=== PATIENT | female | born 1995 | race Caucasian/White ===

== ENCOUNTER 2018-03-01 18:24 | Emergency (ER) | payer SELFPAY ==
[2018-03-01] MEDS ORDERED: SODIUM CHLORIDE 1,000 ML IV STA (18:50)
--- NOTE | 2018-03-01 18:51 | PDOC ---
Rapid Medical Evaluation Time Seen by Provider: 03/01/18 18:41 Medical Evaluation: 03/01/18 18:46 Pt presents with one day of abdominal pain. She was working out at the gym and felt the pain after. Vomited once. Denies fevers, diarrhea, constipation. Exam: Ambulatory, VSS. RLQ tenderness on exam. Abdomen soft, non-distended Orders: Labs, urine, IV, Fluids Pt to proceed to ED for further eval. Discharge Disposition - Diagnosis Abdominal pain Qualifiers: Abdominal location: unspecified location Qualified Code(s): R10.9 - Unspecified abdominal pain - Referrals - Patient Instructions - Post Discharge Activity
[2018-03-01 19:09] VITALS: BMI 23.0
[2018-03-01 19:36] LABS: BASO % 0.5 % (0-2.0); EOS % 3.7 % (0-4.5); HEMATOCRIT 35.9 % (32.4-45.2); HEMOGLOBIN 12.3 GM/dL (10.7-15.3); LYMPH % 29.5 % (8-40); MCHC 34.3 g/dl (32.0-36.0); MEAN CELL VOLUME 87.5 fl (80-96); MONO % 6.9 % (3.8-10.2); NEUT % 59.4 % (42.8-82.8); PLATELET COUNT 338 K/MM3 (134-434); RDW 13.8 % (11.6-15.6); WHITE BLOOD COUNT 9.4 K/mm3 (4.0-10.0)
[2018-03-01 20:00] LABS: ANION GAP 6 (8-16); BILIRUBIN,TOTAL 0.3 mg/dL (0.2-1.0); BLOOD UREA NITROGEN 11 mg/dL (7-18); CALCIUM 8.5 mg/dL (8.5-10.1); CHLORIDE 109 mmol/L (98-107); CO2 27 mmol/L (21-32); CREATININE 0.8 mg/dL (0.55-1.02); GLUCOSE,RANDOM 90 mg/dL (74-106); POTASSIUM 4.2 mmol/L (3.5-5.1); SGOT/AST 13 U/L (15-37); SGPT/ALT 16 U/L (12-78); SODIUM 142 mmol/L (136-145); TOT PROT 7.2 g/dl (6.4-8.2)
--- NOTE | 2018-03-01 20:00 | PDOC ---
History of Present Illness - General History Source: Patient Exam Limitations: No Limitations - History of Present Illness Initial Comments: 03/01/18 20:11 The patient is a 22 year old female with no significant PMH who presents to the emergency department with lower right quadrant abdominal pain for 2 days. The patient reports that she has been experiencing associated nausea with her RLQ abdominal pain. The patient denies any fever, chills, vomit, diarrhea , constipation or urinary symptoms. The patient also denies any sick contact, allergies, or medication use. She denies any chest pain, shortness of breath, headache and dizziness. The patient denies any other complaints. Past surgical history: <Gilberto France - Last Filed: 03/01/18 20:11> - General History Source: Patient <Manav Núñez - Last Filed: 03/02/18 00:37> - General Chief Complaint: Pain, Acute Stated Complaint: STOMACH PAIN Time Seen by Provider: 03/01/18 18:41 Past History <Gilberto France - Last Filed: 03/01/18 20:11> - Past Medical History CVA: No COPD: No DVT: No - Immunization History Immunization Up to Date: Yes - Suicide/Smoking/Psychosocial Hx Smoking History: Never smoked Hx Alcohol Use: No Drug/Substance Use Hx: No Substance Use Type: None <Manav Núñez - Last Filed: 03/02/18 00:37> - Past Medical History Allergies/Adverse Reactions: Allergies Allergy/AdvReac Type Severity Reaction Status Date / Time No Known Allergies Allergy Verified 03/01/18 18:48 Home Medications: Ambulatory Orders Ciprofloxacin [Cipro] 500 mg PO BID #10 tablet 03/02/18 Ibuprofen [Motrin] 600 mg PO TID #30 tablet 03/02/18 Review of Systems - Review of Systems Able to Perform ROS?: Yes Comments:: 03/01/18 20:11 CONSTITUTIONAL: Absent: fever, chills, diaphoresis, generalized weakness, malaise, loss of appetite HEENT: Absent: rhinorrhea, nasal congestion, throat pain, throat swelling, difficulty swallowing, mouth swelling, ear pain, eye pain, visual Changes CARDIOVASCULAR: Absent: chest pain, syncope, palpitations, irregular heart rate, lightheadedness , peripheral edema RESPIRATORY: Absent: cough, shortness of breath, dyspnea with exertion, orthopnea, wheezing, stridor, hemoptysis GASTROINTESTINAL:(+)abdominal pain, nausea Absent: abdominal distension, vomiting, diarrhea, constipation, melena, hematochezia GENITOURINARY: Absent: dysuria, frequency, urgency, hesitancy, hematuria, flank pain, genital pain MUSCULOSKELETAL: Absent: myalgia, arthralgia, joint swelling SKIN: Absent: rash, itching, pallor HEMATOLOGIC/IMMUNOLOGIC: Absent: easy bleeding, easy bruising, lymphadenopathy, frequent infections ENDOCRINE: Absent: unexplained weight gain, unexplained weight loss, heat intolerance, cold intolerance NEUROLOGIC: Absent: headache, focal weakness or paresthesias, dizziness, unsteady gait, seizure, mental status changes, bladder or bowel incontinence PSYCHIATRIC: Absent: anxiety, depression, suicidal or homicidal ideation, hallucinations. <Gilberto France - Last Filed: 03/01/18 20:11> *Physical Exam - Vital Signs Last Vital Signs Temp Pulse Resp BP Pulse Ox 98.3 F 72 16 93/54 97 03/01/18 18:48 03/01/18 18:48 03/01/18 18:48 03/01/18 18:48 03/01/18 18:48 - Physical Exam Comments: 03/01/18 20:11 GENERAL: Well developed, well nourished. Awake and alert. No acute distress. HEENT: Normocephalic, atraumatic. PERRLA, EOMI. No conjunctival pallor. Sclera are non- icteric. Moist mucous membranes. Oropharynx is clear. NECK: Supple. Full ROM. No JVD. Carotid pulses 2+ and symmetric, without bruits. No thyromegaly. No lymphadenopathy. CARDIOVASCULAR: Regular rate and rhythm. No murmurs, rubs, or gallops. Distal pulses are 2+ and symmetric. PULMONARY: No evidence of respiratory distress. Lungs clear to auscultation bilaterally. No wheezing, rales or rhonchi. ABDOMINAL:(+) mild right lower quadrant tenderness. Soft.Non-distended. No rebound or guarding. No organomegaly. Normoactive bowel sounds. MUSCULOSKELETAL Normal range of motion at all joints. No bony deformities or tenderness. No CVA tenderness. EXTREMITIES: No cyanosis. No clubbing. No edema. No calf tenderness. SKIN: Warm and dry. Normal capillary refill. No rashes. No jaundice. NEUROLOGICAL: Alert, awake, appropriate. Cranial nerves 2-12 intact. No deficits to light touch and temperature in face, upper extremities and lower extremities. No motor deficits in the in face, upper extremities and lower extremities. Normoreflexic in the upper and lower extremities. Normal speech. Toes are down- going bilaterally. Gait is normal without ataxia. PSYCHIATRIC: Cooperative. Good eye contact. Appropriate mood and affect. <Gilberto France - Last Filed: 03/01/18 20:11> - Vital Signs Last Vital Signs Temp Pulse Resp BP Pulse Ox 98.3 F 72 16 93/54 97 03/01/18 18:48 03/01/18 18:48 03/01/18 18:48 03/01/18 18:48 03/01/18 18:48 <Manav Núñez - Last Filed: 03/02/18 00:37> ED Treatment Course - LABORATORY CBC & Chemistry Diagram: 03/01/18 19:28 03/01/18 19:28 - ADDITIONAL ORDERS Additional order review: Laboratory Results 03/01/18 03/01/18 19:49 19:28 Sodium 142 Potassium 4.2 Chloride 109 H Carbon Dioxide 27 Anion Gap 6 L BUN 11 Creatinine 0.8 Creat Clearance w eGFR > 60 Random Glucose 90 Calcium 8.5 Total Bilirubin 0.3 AST 13 L ALT 16 Alkaline Phosphatase 61 Total Protein 7.2 Albumin 4.0 Urine Color Yellow Urine Appearance Cloudy Urine pH 7.0 Ur Specific [place] 1.027 Urine Protein 1+ H Urine Glucose (UA) Negative Urine Ketones Negative Urine Blood Negative Urine Nitrite Negative Urine Bilirubin Negative Urine Urobilinogen 4.0 e.u/dl H Ur Leukocyte Esterase Trace Urine HCG, Qual Negative 03/01/18 19:28 RBC 4.10 MCV 87.5 MCHC 34.3 RDW 13.8 MPV 8.0 Neutrophils % 59.4 Lymphocytes % 29.5 Monocytes % 6.9 Eosinophils % 3.7 Basophils % 0.5 - Medications Given in the ED: ED Medications Discontinued Medications Generic Name Dose Route Start Last Admin Trade Name Freq PRN Reason Stop Dose Admin Sodium Chloride 1,000 mls @ 1,000 mls/hr 03/01/18 18:50 03/01/18 19:41 Normal Saline - IV 03/01/18 19:49 1,000 mls/hr ASDIR STA Administration <Gilberto France - Last Filed: 03/01/18 20:11> - LABORATORY CBC & Chemistry Diagram: 03/01/18 19:28 03/01/18 19:28 - ADDITIONAL ORDERS Additional order review: 03/01/18 19:28 RBC 4.10 MCV 87.5 MCHC 34.3 RDW 13.8 MPV 8.0 Neutrophils % 59.4 Lymphocytes % 29.5 Monocytes % 6.9 Eosinophils % 3.7 Basophils % 0.5 - RADIOLOGY Radiology Studies Ordered: Category Date Time Status ABDOMEN & PELVIS CT WITH CONTR [CT] Stat CT Scan 03/01/18 18:50 Ordered - Medications Given in the ED: ED Medications Discontinued Medications Generic Name Dose Route Start Last Admin Trade Name Freq PRN Reason Stop Dose Admin Sodium Chloride 1,000 mls @ 1,000 mls/hr 03/01/18 18:50 03/01/18 19:41 Normal Saline - IV 03/01/18 19:49 1,000 mls/hr ASDIR STA Administration <Manav Núñez - Last Filed: 03/02/18 00:37> Medical Decision Making - Medical Decision Making 03/02/18 00:36 Dr. Núñez: The scribe's documentation has been prepared under my direction and personally reviewed by me in its entirery. I confirm that the note above accurately reflects all work, treatment, procedures, and medical decision making performed by me. ct scan showed mild bladder inflammation. Appendix was normal. Rx Cipro 500mg po, Motrin 600mg po <Manav Núñez - Last Filed: 03/02/18 00:37> *DC/Admit/Observation/Transfer - Attestations Scribe Attestion: 03/01/18 20:12 Documentation prepared by Gilberto France, acting as medical physics teacher for Manav Núñez MD. <Gilberto France - Last Filed: 03/01/18 20:11> - Discharge Dispostion Decision to Admit order: No <Manav Núñez - Last Filed: 03/02/18 00:37> Diagnosis at time of Disposition: Cystitis Abdominal pain Qualifiers: Abdominal location: unspecified location Qualified Code(s): R10.9 - Unspecified abdominal pain - Discharge Dispostion Disposition: HOME Condition at time of disposition: Stable - Prescriptions Prescriptions: Ciprofloxacin [Cipro] 500 mg PO BID #10 tablet Ibuprofen [Motrin] 600 mg PO TID #30 tablet - Referrals Referrals: Jose Manuel Dempsey MD [Staff Physician] - - Patient Instructions Printed Discharge Instructions: DI for Acute Cystitis Print Language: TURKISH
[2018-03-01 20:01] LABS: ALK PHOS 61 U/L (45-117)
[2018-03-01 20:07] LABS: URINE APPEARANCE CLOUDY; URINE BILIRUBIN NEGATIVE (<2.0 mg/dL); URINE COLOR YELLOW; URINE GLUCOSE (UA) NEGATIVE (NEGATIVE); URINE KETONE NEGATIVE (NEGATIVE); URINE LEUK ESTERASE TRACE (NEGATIVE); URINE NITRITE NEGATIVE (NEGATIVE); URINE PROTEIN 1+ (NEGATIVE); URINE UROBILINOGEN 4.0 E.U/dl mg/dL (0.2-1.0)
[2018-03-01 20:10] LABS: HCG,QUALITATIVE URINE NEGATIVE
[2018-03-01 20:14] LABS: EPI CELLS RARE /HPF (FEW); URINE MUCUS RARE; YEAST FEW
[2018-03-01 20:23] LABS: INR 1.04 (0.82-1.09); PROTHROMBIN TIME (PATIENT) 11.8 SEC (9.7-13.0)
[2018-03-02] MEDS ORDERED: CIPROFLOXACIN 500 MG TABLET (RESTRICTED TO ID) PO STA (00:30)
[2018-03-02] MEDS ORDERED: IBUPROFEN 600 MG TABLET (FP) PO ONE ×2 (00:31→01:16)
[2018-03-02 01:33] VITALS: BP 100/78; PULSE 89; TEMP 98.5
== END 2018-03-02 01:33 | disposition home or self-care (01) ==
LOC: JER 18:24
PROC: 3E0337Z Introduction of Electrolytic and Water Balance Substance into Peripheral Vein, Percutaneous Approach (ICD-10-PCS; principal; 2018-03-01)
DX: R10.9 Unspecified abdominal pain (principal)
CPT/HCPCS: 36415; 74177-TC; 80053; 81003; 81015; 84703; 85025; 85610; 86850; 86900; 86901; 87086; 99282-25; J7030

== ENCOUNTER 2018-04-29 13:45 | Emergency (ER) | payer OTHER ==
--- NOTE | 2018-04-29 13:59 | PDOC ---
History of Present Illness - General Stated Complaint: 14 WEEKS PAIN IN STOMACHE Time Seen by Provider: 04/29/18 13:59 History Source: Patient - History of Present Illness Initial Comments: 04/29/18 14:56 22F with no PMH presents to the ER for abdominal pain. She states she is 14 weeks pregna but upon further evaluation she is 12 weeks 3 days. She called her OB at [facility] and they told her to go to the ER. She states since 4am she has been having RLQ abdominal pain. She states there is some minimal LLQ but it is mostly right. She also complains of lower back pain. Patient was seen here about 2 months ago and given ciprofloxacin for cystitis and at the time Upreg was negative but she did not take the antibiotics because she had morning sickness. She currently endorses dysuria as well. Still has not seen OB and will see OB on may 02, 2018 for US and appointment. She has been taking vitamins. She denies vaginal discharge or bleeding. She is in a monogamous relationship. Denies history of STDs/STIs. Past History - Travel Traveled outside of the country in the last 30 days: No Close contact w/someone who was outside of country & ill: No - Past Medical History Allergies/Adverse Reactions: Allergies Allergy/AdvReac Type Severity Reaction Status Date / Time No Known Allergies Allergy Verified 04/29/18 14:16 Home Medications: Ambulatory Orders Vit 93/Iron Fum/Folic [ Formula Tablet] 1 each PO DAILY CVA: No COPD: No DVT: No - Immunization History Immunization Up to Date: Yes - Suicide/Smoking/Psychosocial Hx Smoking History: Never smoked Hx Alcohol Use: No Drug/Substance Use Hx: No Substance Use Type: None Review of Systems - Review of Systems Able to Perform ROS?: Yes Is the patient limited Maori proficient: No Constitutional: No: Symptoms Reported, See HPI, Chills, Diaphoresis, Fever, Loss of Appetite, Malaise, Night Sweats, Weakness, Weight Stable, Unintentional Wgt. Loss, Unexplained wgt Loss, Other HEENTM: No: Symptoms Reported, See HPI, Eye Pain, Blurred Vision, Tearing, Recent change in vision, Double Vision, Cataracts, Ear Pain, Ocular Prothesis, Ear Discharge, Nose Pain, Nose Congestion, Tinnitus, Nose Bleeding, Hearing Loss , Throat Pain, Throat Swelling, Mouth Pain, Dental Problems, Difficulty Swallowing, Mouth Swelling, Other Respiratory: No: Symptoms reported, See HPI, Cough, Orthopnea, Shortness of Breath, SOB with Exertion, SOB at Rest, Stridor, Wheezing, Productive cough, Hemoptysis, Other Cardiac (ROS): No: Symptoms Reported, See HPI, Chest Pain, Edema, Irregular Heart Rate, Lightheadedness, Palpitations, Syncope, Chest Tightness, Other ABD/GI: Yes: Nausea, Vomiting (from mornign sickness), Other (abdominal pain) : Yes: Dysuria, Flank Pain Musculoskeletal: No: Symptoms Reported, See HPI, Back Pain, Gout, Joint Pain, Joint Swelling, Muscle Pain, Muscle Weakness, Neck Pain, Joint Stiffness, Other Integumentary: No: Symptoms Reported, See HPI, Bruising, Change in Color, Change in Hair/Nails, Dryness, Erythema, Flushing, Lesions, Lumps, Pallor, Pruritus, Rash, Sweating, Other Neurological: No: Symptoms reported, See HPI, Headache, Numbness, Paresthesia, Pre-Existing Deficit, Seizure, Tingling, Tremors, Weakness, Unsteady Gait, Ataxia, Dizziness, Other Psychiatric: No: Anxiety, Depression, Frequent Crying, Stressors, Sleep Pattern Change, Emotional Problems, Mood Swings, Change in Appetite, Other Endocrine: No: Symptoms Reported, See HPI, Excessive Sweating, Flushing, Intolerance to Cold, Intolerance to Heat, Increased Hunger, Increased Thirst, Increased Urine, Unexplained Weight Gain, Unexplained Weight Loss, Change in Weight, Other Hematologic/Lymphatic: No: Symptoms Reported, See HPI, Anemia, Blood Clots, Easy Bleeding, Easy Bruising, Bleeding Diathesis, Lymph Node Abnormalities, Swollen Glands, Other *Physical Exam - Physical Exam General Appearance: Yes: Nourished, Appropriately Dressed. No: Apparent Distress HEENT: positive: EOMI, SON, Normal ENT Inspection, Normal Voice, Symmetrical Neck: positive: Trachea midline, Supple Respiratory/Chest: positive: Lungs Clear, Normal Breath Sounds. negative: Respiratory Distress Cardiovascular: positive: Regular Rhythm, Regular Rate, S1, S2. negative: Edema , JVD, Murmur Gastrointestinal/Abdominal: positive: Tender (suprabic tenderness RLQ tenderness ), Soft Musculoskeletal: positive: CVA Tenderness, CVA Tenderness (R) Extremity: positive: Normal Capillary Refill, Normal Inspection, Normal Range of Motion. negative: Tender Integumentary: positive: Dry, Warm Neurologic: positive: email marketing processor II-XII NML intact, Fully Oriented, Alert, Normal Mood/ Affect, Normal Response, Motor Strength 01/08 ED Treatment Course - LABORATORY CBC & Chemistry Diagram: 04/29/18 15:00 04/29/18 15:00 Medical Decision Making - Medical Decision Making 04/29/18 15:08 22F with no PMH presents to the ER with dysuria, flank pain, and abdominal pain likely with pyelonephritis from untreated cystitis. DDx includes but not limited to UTI and threatened Will do: CBC CMP Mg Type and screen Beta HCG UA UCx US Reassess 04/29/18 17:40 ultrasounds noted: Renal US WNL transvaginal US confirms intrauterine Dr. Bueno spoken to over the phone and recommends against ABx given negative UA and US showing 8 weeks and fetus currently undergoing organogensis at this stage. Pain could be due to round ligament pain or rio hick contractions. Patient should follow up with OB and keep herself hydrated Per OB. If UCx grows something patient should be treated. *DC/Admit/Observation/Transfer Diagnosis at time of Disposition: Abdominal pain Qualifiers: Abdominal location: right lower quadrant Qualified Code(s): R10.31 - Right lower quadrant pain - Discharge Dispostion Disposition: HOME Condition at time of disposition: Stable Decision to Admit order: No - Referrals Referrals: Zeina Frank CNM [Primary Care Provider] - 3 days (call for appointment) - Patient Instructions Printed Discharge Instructions: True or False: Women Should Avoid Cats , Support Garment May Reduce Back Pain Discomfort During , DI for Abdominal Pain -- Early Additional Instructions: you were seen for abdominal pain. Please follow up with your OB doctor as soon as possible. If you have worsening symptoms please go to the nearest emergency room. If you start having cramping or vaginal bleeding go to the nearest emergency room. You OB doctor should follow up your urine culture. You should be following with a primary care doctor. If you need a doctor you can follow up with me at [address] [place] [address] floor. i see patients every from 1-430pm. You can make an appointment with Dr. Lyle Bond Call . - Post Discharge Activity
[2018-04-29 14:24] VITALS: TEMP 98.7; BMI 20.2
[2018-04-29] MEDS ORDERED: SODIUM CHLORIDE 1,000 ML IV STA (14:36)
--- NOTE | 2018-04-29 14:54 | PDOC ---
Attending Attestation - Resident Resident Name: Mony Bondsukhdeep - ED Attending Attestation I have performed the following: I have examined & evaluated the patient, The case was reviewed & discussed with the resident, I agree w/resident's findings & plan, Exceptions are as noted - Medical Decision Making 04/29/18 14:49 A portion of this note was written by my scribe, under my supervision. Vital Signs Temp Pulse Resp BP Pulse Ox 98.7 F 75 18 111/61 98 04/29/18 14:22 04/29/18 14:22 04/29/18 14:22 04/29/18 14:22 04/29/18 14:22 22 year old female with no pmh, ~12 to 13 wks p/w dysuria, suprapubic pain and R flank pain. Endorses discomfort since 4 am. States she has dysuria but no fevers, vomiting. States has been feeling nauseous, but attributes to morning sickness. Pt was diagnosed with cystitis several weeks ago, but never took the antibiotics. With R flank pain, dysuria, findings are concerning for pyelonephritis. Labs, UA. Likely ceftriaxone and if cleared by donkey ride operator (from consultation), pt can be d/c with keflex. Denies vaginal bleeding. Check ultrasound. 04/29/18 16:01 CBC, BMP 04/29/18 15:00 04/29/18 15:00 CMP Sodium 138 mmol/L (136-145) 04/29/18 15:00 Potassium 4.1 mmol/L (3.5-5.1) 04/29/18 15:00 Chloride 107 mmol/L (98-107) 04/29/18 15:00 Carbon Dioxide 24 mmol/L (21-32) 04/29/18 15:00 Anion Gap 7 MMOL/L (8-16) L 04/29/18 15:00 BUN 9 mg/dL (7-18) 04/29/18 15:00 Creatinine 0.4 mg/dL (0.55-1.02) L 04/29/18 15:00 Creat Clearance w eGFR > 60 (>60) 04/29/18 15:00 Random Glucose 74 mg/dL (74-106) 04/29/18 15:00 Calcium 8.3 mg/dL (8.5-10.1) L 04/29/18 15:00 Magnesium 2.0 mg/dL (1.8-2.4) 04/29/18 15:00 Total Bilirubin 0.3 mg/dL (0.2-1.0) 04/29/18 15:00 AST 9 U/L (15-37) L 04/29/18 15:00 ALT 13 U/L (12-78) 04/29/18 15:00 Alkaline Phosphatase 37 U/L (45-117) L 04/29/18 15:00 Total Protein 7.0 g/dl (6.4-8.2) 04/29/18 15:00 Albumin 3.8 g/dl (3.4-5.0) 04/29/18 15:00 Beta HCG, Quant 81269.2 mIU/ml 04/29/18 15:00 Urine Test Results Urine Color Yellow 04/29/18 15:00 Urine Appearance Slcloudy 04/29/18 15:00 Urine pH 6.0 (5.0-8.0) 04/29/18 15:00 Ur Specific [place] 1.028 (1.001-1.035) 04/29/18 15:00 Urine Protein Negative (NEGATIVE) 04/29/18 15:00 Urine Glucose (UA) Negative (NEGATIVE) 04/29/18 15:00 Urine Ketones Negative (NEGATIVE) 04/29/18 15:00 Urine Blood Negative (NEGATIVE) 04/29/18 15:00 Urine Nitrite Negative (NEGATIVE) 04/29/18 15:00 Urine Bilirubin Negative (<2.0 mg/dL) 04/29/18 15:00 Ur Leukocyte Esterase Negative (NEGATIVE) 04/29/18 15:00 Though UA is negative, given that pt has dysuria and flank pain, will treat as pyelonephritis. Give IV antibiotics. <Niels Eason - Last Filed: 04/29/18 16:01> - HPI HPI: Patient is a 22 year old female no ,0,0, who is 12 weeks 3 days, ( prior c-sections), who presents with abdominal pain. Patient states that her right-sided abdominal pain began around 4 am. She states that she called her manual tester at [address] [place] [address] who advised her to come to the ER. She also reports some nausea and vomiting and states that she normally gets morning sickness. She also endorses a burning pain upon urination. She was seen 2 months ago and dx with cystitis. She denies h/o of STDs. Denies any fever or chills. Denies recent vaginal bleeding. - Physicial Exam PE: GENERAL: Awake, alert, and fully oriented, in no acute distress HEAD: No signs of trauma EYES: PERRLA, EOMI, sclera anicteric, conjunctiva clear ABDOMEN: Soft, Right sided CVA tenderness, suprapubic tenderness. No guarding, no rebound. EXTREMITIES: Normal range of motion, no edema. No clubbing or cyanosis. No cords, erythema, or tenderness NEUROLOGICAL: Cranial nerves II through XII grossly intact. Normal speech, normal gait SKIN: Warm, Dry, normal turgor, no rashes or lesions noted. <Francesca Garcia - Last Filed: 04/29/18 16:26>
[2018-04-29 15:27] LABS: BASO % 0.3 % (0-2.0); EOS % 2.4 % (0-4.5); HEMATOCRIT 35.4 % (32.4-45.2); HEMOGLOBIN 12.4 GM/dL (10.7-15.3); LYMPH % 21.1 % (8-40); MCH 30.6 pg (25.7-33.7); MCHC 35.1 g/dl (32.0-36.0); MEAN PLT VOLUME 8.6 fl (7.5-11.1); MONO % 4.8 % (3.8-10.2); NEUT % 71.4 % (42.8-82.8); PLATELET COUNT 275 K/MM3 (134-434); RBC 4.07 M/mm3 (3.60-5.2); RDW 13.4 % (11.6-15.6); WHITE BLOOD COUNT 9.3 K/mm3 (4.0-10.0)
[2018-04-29 15:32] LABS: ALBUMIN 3.8 g/dl (3.4-5.0); ANION GAP 7 MMOL/L (8-16); BLOOD UREA NITROGEN 9 mg/dL (7-18); CALCIUM 8.3 mg/dL (8.5-10.1); CHLORIDE 107 mmol/L (98-107); CO2 24 mmol/L (21-32); GLUCOSE,RANDOM 74 mg/dL (74-106); POTASSIUM 4.1 mmol/L (3.5-5.1); SGOT/AST 9 U/L (15-37); SGPT/ALT 13 U/L (12-78); SODIUM 138 mmol/L (136-145); URINE APPEARANCE SLCLOUDY; URINE BILIRUBIN NEGATIVE (<2.0 mg/dL); URINE COLOR YELLOW; URINE GLUCOSE (UA) NEGATIVE (NEGATIVE); URINE KETONE NEGATIVE (NEGATIVE); URINE LEUK ESTERASE NEGATIVE (NEGATIVE); URINE NITRITE NEGATIVE (NEGATIVE); URINE PROTEIN NEGATIVE (NEGATIVE)
[2018-04-29 15:50] LABS: ALK PHOS 37 U/L (45-117); BILIRUBIN,TOTAL 0.3 mg/dL (0.2-1.0); CREATININE 0.4 mg/dL (0.55-1.02)
[2018-04-29 18:46] VITALS: BP 101/68; PULSE 61
== END 2018-04-29 18:46 | disposition home or self-care (01) ==
LOC: JER 13:45
PROC: 3E0337Z Introduction of Electrolytic and Water Balance Substance into Peripheral Vein, Percutaneous Approach (ICD-10-PCS; principal; 2018-04-29)
DX: O26.891 Other specified pregnancy related conditions, first trimester (principal); R10.31 Right lower quadrant pain; Z3A.08 8 weeks gestation of pregnancy
CPT/HCPCS: 36415; 76775-TC; 76815-TC; 76817-TC; 80053; 81003; 83735; 84702; 85025; 86850; 86900; 86901; 87086; 96360; 99282-25; J7030

== ENCOUNTER 2018-11-23 12:30 | Inpatient (IN) | payer OTHER ==
[2018-11-23 13:53] VITALS: BMI 24.5
--- NOTE | 2018-11-23 13:56 | HP ---
Past Medical History - Admission Chief Complaint: RLTCS History of Present Illness: 23yo @ 39wks here for scheduled RTLCS, declined BTL Preg c/b 3 prior C/S (initially for arrest of 2nd stage) and UTI, but treated with Macrobid course. Today reports No VB/LOF, no ctx. +FM Consistent PNC at [address] [place] [address] History Source: Patient Limitations to Obtaining History: No Limitations - Past Medical History ENVIRONMENTAL ATTORNEY: No: Alzheimer's, CVA, Dementia, Migraine, Multiple Sclerosis, Peripheral Neuropathy, Parkinson's, Seizure, Syncope, TIA, Vertigo, Other Cardiovascular: No: AFIB, Aneurysm, Aortic Insufficiency, Aortic Stenosis, CAD, CHF, Deep Vein Thrombosis, HTN, Hyperlipdemia, LA, Mitral Insufficiency, Mitral Stenosis, Murmur, Pulmonary Hypertension, Other Pulmonary: No: Asthma, Bronchitis, Cancer, COPD, O2 Dependent, Pneumonia, Previously Intubated, Pulmonary Embolus, Pulmonary Fibrosis, Sleep Apnea, Other ...Para: 4 ...Term: 3 Heme/Onc: No: Anemia, B12 Deficiency, Bleeding Disorder, Cancer, Current Chemotherapy, Current Radiation Therapy, Hemochromatosis, Hypercoaguable State, Myeloproliferative Synd, Sickle Cell Disease, Sickle Cell Trait, Thrombocytopenia, Other - Past Surgical History Past Surgical History: Yes: Hx Myomectomy: No Hx Transabdominal Cerclage: No - Smoking History Smoking history: Never smoked Have you smoked in the past 12 months: No - Alcohol/Substance Use Hx Alcohol Use: No History of Substance Use: reports: None - Social History Usual Living Arrangement: Yes: With Spouse ADL: Independent History of Recent Travel: No Home Medications - Allergies Allergies/Adverse Reactions: Allergies Allergy/AdvReac Type Severity Reaction Status Date / Time No Known Allergies Allergy Verified 04/29/18 14:16 - Home Medications Home Medications: Ambulatory Orders Vit 93/Iron Fum/Folic [ Formula Tablet] 1 each PO DAILY Review of Systems - Review of Systems Constitutional: denies: No Symptoms, Chills, Diaphoresis, Fever, Lethargy, Loss of Appetite, Malaise, Night Sweats, Unintentional Wgt. Loss, Weakness, Other Cardiovascular: denies: No Symptoms, Chest Pain, Edema, Palpitations, Shortness of Breath, Other Respiratory: denies: No Symptoms, Cough, Exercise Intolerance, Hemoptysis, Orthopnea, PND, Snoring, SOB, SOB on Exertion, Wheezing, Other Gastrointestinal: denies: No Symptoms, Abdominal Pain, Bloating, Constipation, Diarrhea, Dysphagia, Indigestion, Melena, Nausea, Rectal Bleeding, Vomiting, Vomiting Blood, Other Physical Exam - Maternity Constitutional: Yes: Well Nourished Eyes: Yes: WNL HENT: Yes: WNL - Abdominal Exam/OB Number of Fetuses: Single Presentation: Vertex Contractions: No Monitor Mode: External Heart Rate Location: [facility], [facility] Category: I Accelerations: Non-Uniform Decelerations: None - Vaginal Exam/OB Vaginal Bleediing: No Speculum Exam: No Dilatation (cm): deferr Amniotic Membrane Status: Intact Presentation: Vertex/Position - Physical Exam Edema: No Problem List - Problems (1) History of Code(s): Z98.891 - HISTORY OF UTERINE SCAR FROM PREVIOUS SURGERY Assessment/Plan 23yo @ 39wks here for scheduled RTLCS, no BTL Admit to L&D NPO, IVFs Ancef IV SCDs Risk of procedure including bleeding requiring transfusion, infection and injury to surrounding tissue (bladder, bowel, tubes, ovaries, vessels, infant) all discussed. Previously counseled that future C-Sections will need to be in a tertiary care center. Consent signed. Micki Dyer MD
[2018-11-23] MEDS ORDERED: ELECTROLYTE-148 SOLN 1,000 ML IV SCH (14:00)
[2018-11-23] MEDS ORDERED: ELECTROLYTE-148 SOLN 500 ML IV ONE (14:03)
[2018-11-23] MEDS ORDERED: CITRIC ACID/SODIUM CITRATE 30 ML UNIT-DOSE CUP PO ONE (14:03)
[2018-11-23] MEDS ORDERED: morphine SULFATE/Preservative Free 0.5 MG/ML (1cc Syringe) ONE (15:49)
[2018-11-23] MEDS ORDERED: OXYTOCIN 20 UNITS in 0.9% NS 40 UNIT/2,000 ML INFUS.BAG IV ONE (15:52)
[2018-11-23] MEDS ORDERED: ceFAZolin SODIUM 1 GM VIAL ONE (16:09)
[2018-11-23] MEDS ORDERED: ePHEDrine SULFATE 50 MG/1 ML AMPULE ONE (16:20)
[2018-11-23 16:51] LABS: ALBUMIN 2.5 g/dl (3.4-5.0); ALK PHOS 137 U/L (45-117); ANION GAP 8 MMOL/L (8-16); BILIRUBIN,TOTAL 0.4 mg/dL (0.2-1); BLOOD UREA NITROGEN 7 mg/dL (7-18); CALCIUM 7.5 mg/dL (8.5-10.1); CHLORIDE 107 mmol/L (98-107); CO2 23 mmol/L (21-32); CREATININE 0.3 mg/dL (0.55-1.3); GLUCOSE,RANDOM 62 mg/dL (74-106); POTASSIUM 3.8 mmol/L (3.5-5.1); SGOT/AST 13 U/L (15-37); SGPT/ALT 10 U/L (13-61); SODIUM 137 mmol/L (136-145); TOT PROT 5.6 g/dl (6.4-8.2)
[2018-11-23] MEDS ORDERED: IBUPROFEN 800 MG/8 ML IJ IVPB PRN (16:53)
[2018-11-23] MEDS ORDERED: METHYLERGONOVINE MALEATE 0.2 MG/1 ML AMP IM PRN (16:53)
[2018-11-23] MEDS ORDERED: SENNOSIDES/DOCUSATE COMBO (SENNA PLUS) TABLET (UD) PO PRN (16:53)
--- NOTE | 2018-11-23 16:53 | OP ---
Operative Note - Note: Operative Date: 11/23/18 Pre-Operative Diagnosis: 39wks, prior C/S x 3 Operation: Repeat Low Transverse Findings: VMI, weight pending. Apgars 7,9. Normal tubes and ovaries. No nuchal. No meconium. Post-Operative Diagnosis: Same as Pre-op Surgeon: Chani Dyer Substation Supervisor: Killian Griggs Anesthesiologist/MILITARY SOURCE OPERATIONS OFFICER: Alfred Carver Anesthesia: Spinal Estimated Blood Loss (mls): 500 Drains, Volume Out (mls): 300 (clear urine) Operative Report Dictated: Yes
[2018-11-23] MEDS ORDERED: OXYTOCIN 20 UNITS in 0.9% NS 20 UNIT/1,000 ML INFUS.BAG IV SCH (17:00)
[2018-11-23] MEDS ORDERED: ONDANSETRON 4 MG/2 ML VIAL IVPUSH PRN (17:13)
[2018-11-23] MEDS: FERROUS SO4 325 MG TABLET (FP) PO SCH (23:10)
[2018-11-24] MEDS ORDERED: OXYTOCIN 20 UNITS in 0.9% NS 20 UNIT/1,000 ML INFUS.BAG IV ONE (04:44)
[2018-11-24 08:15] LABS: BASO % 0.2 % (0-2.0); EOS % 0.1 % (0-4.5); HEMATOCRIT 30.1 % (32.4-45.2); HEMOGLOBIN 10.1 GM/dL (10.7-15.3); LYMPH % 7.4 % (8-40); MCH 27.4 pg (25.7-33.7); MCHC 33.6 g/dl (32.0-36.0); MEAN CELL VOLUME 81.4 fl (80-96); MEAN PLT VOLUME 8.7 fl (7.5-11.1); MONO % 4.3 % (3.8-10.2); PLATELET COUNT 227 K/MM3 (134-434); RDW 19.7 % (11.6-15.6)
--- NOTE | 2018-11-24 09:00 | PN ---
Post Progress Note Post Day: 1 Type of Delivery: Repeat C/S Vital Signs: Vital Signs Temperature 98.5 F 11/24/18 06:03 Pulse Rate 84 11/24/18 06:03 Respiratory Rate 20 11/24/18 07:00 Blood Pressure 103/51 L 11/24/18 06:03 O2 Sat by Pulse Oximetry (%) 100 11/23/18 19:45 Uterus: Yes: Fundus below umbilicus Incision: Yes: Dressing dry and intact, Romel intact Abdomen/GI: Yes: Abdomen soft Lochia: Yes: Rubra Lochia, amount: Small Extremities: Yes: Calves non-tender Activity: Ambulating - Labs Labs: CBC WBC 15.0 K/mm3 (4.0-10.0) H 11/24/18 07:30 RBC 3.70 M/mm3 (3.60-5.2) 11/24/18 07:30 Hgb 10.1 GM/dL (10.7-15.3) L 11/24/18 07:30 Hct 30.1 % (32.4-45.2) L D 11/24/18 07:30 MCV 81.4 fl (80-96) 11/24/18 07:30 MCH 27.4 pg (25.7-33.7) 11/24/18 07:30 MCHC 33.6 g/dl (32.0-36.0) 11/24/18 07:30 RDW 19.7 % (11.6-15.6) H 11/24/18 07:30 Plt Count 227 K/MM3 (134-434) D 11/24/18 07:30 MPV 8.7 fl (7.5-11.1) 11/24/18 07:30 Absolute Neuts (auto) 13.2 K/mm3 (1.5-8.0) H 11/24/18 07:30 Neutrophils % 88.0 % (42.8-82.8) H 11/24/18 07:30 Lymphocytes % 7.4 % (8-40) L D 11/24/18 07:30 Monocytes % 4.3 % (3.8-10.2) 11/24/18 07:30 Eosinophils % 0.1 % (0-4.5) D 11/24/18 07:30 Basophils % 0.2 % (0-2.0) 11/24/18 07:30 Nucleated RBC % 0 % (0-0) 11/24/18 07:30 Problem List - Problems (1) History of Code(s): Z98.891 - HISTORY OF UTERINE SCAR FROM PREVIOUS SURGERY Assessment/Plan 23yo s/p RTLCS, no BTL, POD#1 Routine PP care OOB, ambulate D/C sal today Labs pending Anticipate d/c to home by POD#4 Micki Dyer MD
[2018-11-24] MEDS: PRENATAL VITAMINS W/ FOLIC ACID TABLET (FP) PO SCH (09:05)
[2018-11-24] MEDS: FERROUS SO4 325 MG TABLET (FP) PO SCH ×2 (09:05→22:09)
--- NOTE | 2018-11-24 11:27 | PN ---
Progress Note (short form) - Note Progress Note: Post op day#1.S/P C Section under spinal anesthesia with duramorph uneventful.Patient stable and has little pain for which she is on medication.no any anesthesia related problem.Patient Dc from the anesthesia care.
[2018-11-24] MEDS: oxyCODONE HCL 5 MG TABLET PO PRN ×3 (12:45→22:15)
[2018-11-24] MEDS: IBUPROFEN 600 MG TABLET (FP) PO PRN ×3 (12:46→22:14)
--- NOTE | 2018-11-24 12:53 | OP ---
DATE OF OPERATION: 11/23/2018 PREOPERATIVE DIAGNOSES: A 39-week , 3 prior sections. POSTOPERATIVE DIAGNOSES: A 39-week , 3 prior sections. PROCEDURE: Repeat low transverse section. SURGEON: Chani Dyer MD CONFECTIONERY LABORATORY MANAGER: DICK Epps ANESTHESIA: Spinal. INTRAVENOUS FLUIDS: 1300. ESTIMATED BLOOD LOSS: 500. URINE OUTPUT: 300 mL of clear urine at the end of the procedure. FINDINGS: Viable male . ROT presentation. No nuchal. No meconium. Apgars 7/9. Weight pending. Normal tubes and ovaries bilaterally. COMPLICATIONS: None. CONDITION: Stable to recovery room. NATURE OF PROCEDURE: After appropriate consents were signed, patient was taken to the operating room where spinal anesthesia was administered. She was placed in supine position. A Boels catheter had been inserted prior to entry into the operating room. The abdomen was then prepped and draped in a normal sterile fashion. A Pfannenstiel incision was made after the timeout was performed. The incision was made with a scalpel and carried through to the underlying layers until the fascia was nicked in the midline. Fascia was then extended with the use of the scalpel laterally secondary to dense adhesions and then also with the Gaytan scissors. The inferior aspect of the fascia was grasped, tended upwards, and the rectus muscles were dissected off sharply with the Gaytan scissors and scalpel. Attention was then paid to the superior aspect which was taken down in a similar fashion. The rectus muscles were fused in the midline with dense adhesions. They were grasped, and at the rectus sheath midline, the scalpel was used to cautiously enter the peritoneal cavity. This was then extended manually. The bladder blade was inserted. Vesicouterine flaps were created with the Metzenbaum scissors. The bladder flap was created digitally. The bladder blade was readjusted. The uterus was incised in a low transverse fashion and was noted to be quite thin. However, there was no uterine window. Clear amniotic fluid was noted upon entry. The was delivered without difficulty and cord was clamped and cut. The was handed off to the awaiting pediatric staff. The uterus was then manually removed. The uterus was exteriorized and cleared of all clot and debris. The hysterotomy was closed in a single vertical imbricating layer with good hemostasis. At the edges, there was an area on the patient's left at the hysterotomy that had to be reinforced with 1 Vicryl. Hemostasis was then noted. The uterus was then returned to the abdominal cavity. The hysterotomy was rechecked and noted to still be hemostatic. The gutters were cleared of all clot and debris. The rectus muscles were then reapproximated in the midline with a 2 -0 chromic. The fascia was closed with a 0 Vicryl. Skin was closed with leatha. Sponge, lap, and needle counts were correct x3. Patient did receive 1 g of Ancef at the start of the procedure. She was taken from the operating room to the recovery room in stable condition. MD MARQUITA STAFFORD/[id number] MTDD
[2018-11-24] MEDS ORDERED: BISACODYL 10 MG SUPP.RECT RC PRN (16:53)
[2018-11-24] MEDS: SIMETHICONE 80 MG TAB.CHEW (FP) PO PRN (22:09)
--- NOTE | 2018-11-25 06:14 | PN ---
Progress Note (short form) - Note Progress Note: pod 2 s/p c/s doing well, no c/o Last Vital Signs Temp Pulse Resp BP Pulse Ox 97.2 F L 73 20 90/70 100 11/24/18 21:55 11/24/18 21:55 11/24/18 21:55 11/24/18 21:55 11/23/18 19:45 abdomen soft , no distension, no cva incision dry, clean no calf tenderness pod 2 afebrile plan ambulate , cbc in am pain management
[2018-11-25] MEDS: oxyCODONE HCL 5 MG TABLET PO PRN ×3 (09:43→20:41)
[2018-11-25] MEDS: IBUPROFEN 600 MG TABLET (FP) PO PRN ×3 (09:43→20:40)
[2018-11-25] MEDS: PRENATAL VITAMINS W/ FOLIC ACID TABLET (FP) PO SCH (09:45)
[2018-11-25] MEDS: FERROUS SO4 325 MG TABLET (FP) PO SCH ×2 (09:45→21:50)
[2018-11-25] MEDS: SIMETHICONE 80 MG TAB.CHEW (FP) PO PRN ×2 (16:19→20:40)
[2018-11-26] MEDS: IBUPROFEN 600 MG TABLET (FP) PO PRN ×3 (04:08→14:17)
[2018-11-26] MEDS: SIMETHICONE 80 MG TAB.CHEW (FP) PO PRN ×2 (04:09→14:18)
[2018-11-26] MEDS: oxyCODONE HCL 5 MG TABLET PO PRN ×2 (04:09→09:26)
[2018-11-26 07:37] LABS: BASO % 0.4 % (0-2.0); EOS % 3.2 % (0-4.5); HEMATOCRIT 27.6 % (32.4-45.2); HEMOGLOBIN 9.4 GM/dL (10.7-15.3); MCH 27.6 pg (25.7-33.7); MEAN CELL VOLUME 81.3 fl (80-96); MEAN PLT VOLUME 8.5 fl (7.5-11.1); MONO % 4.9 % (3.8-10.2); NEUT % 64.5 % (42.8-82.8); PLATELET COUNT 268 K/MM3 (134-434); RDW 20.4 % (11.6-15.6); WHITE BLOOD COUNT 10.1 K/mm3 (4.0-10.0)
[2018-11-26] MEDS: FERROUS SO4 325 MG TABLET (FP) PO SCH (09:25)
[2018-11-26] MEDS: PRENATAL VITAMINS W/ FOLIC ACID TABLET (FP) PO SCH (09:25)
[2018-11-26 13:39] VITALS: BP 108/62; PULSE 72; TEMP 98.2
--- NOTE | 2018-11-26 14:50 | PN ---
Progress Note (short form) - Note Progress Note: pod 3 doing well, no c/o passing gas CBC, BMP 11/26/18 06:00 11/23/18 15:45 abdomen soft, no distension, no cva incision dry , clean, healing no calf tenderness lochia mild plan ambulate ,for d/c home in am
--- NOTE | 2018-12-01 13:03 | PATH ---
Surgical Pathology Report Patient Name: AUSTIN TAYLOR [facility]. Rec. #: [id number] /Age/Gender: 1995 (Age: 23) / F Account: [id number] Location: [facility] OBS/CANNONEER Taken: 11/23/2018 Received: 11/24/2018 Reported: 12/01/2018 Physicians: Chani Dyer Specimen(s) Received PLACENTA Clinical History , x3, history of blood transfusion with hemorrhage (2016) 39 weeks gestation Final Diagnosis PLACENTA, DELIVERY: FOCALLY DISRUPTED THIRD TRIMESTER PLACENTA WITH INTERVILLOUS AND SUBCHORIONIC FIBRIN DEPOSITION, THREE VESSEL UMBILICAL CORD AND UNREMARKABLE PLACENTAL MEMBRANES. Electronically Signed Harpal Lewis M.D. Gross Description The specimen is received fresh labeled placenta and is a 437 gram, 15.0 x 14.0 x 3.3 cm. placenta with attached membranes and umbilical cord. The attached membranes are alarcon, translucent with focal opacities and insert marginally. The umbilical cord measures 30 cm. in length and averages 1.3 cm. in diameter. The cord inserts eccentrically, 5 cm. to the nearest margin. No true knots or strictures are identified. Cut surface of the umbilical cord reveals 3 vessels. The surface is calderon-blue with minimal fibrin deposition and appropriate caliber vessels. The maternal surface is red-brown with focal defects. Sectioning reveals red-brown, spongy parenchyma. No lesions are identified. Planning Aide sections are submitted in three cassettes as follows: 1- membrane rolls and umbilical cord; 2-3- full thickness sections of placenta. /11/30/2018 [facility]11/30/2018
== END 2018-11-26 16:10 | disposition home or self-care (01) | DRG 540 ==
LOC: JLDR 12:30 → J3W 20:00
PROVIDERS: ADMIT Obstetrics & Gynecology; ATTEND Obstetrics & Gynecology
PROC: 10D00Z1 Extraction of Products of Conception, Low, Open Approach (ICD-10-PCS; principal; 2018-11-23)
DX: O34.219 Maternal care for unspecified type scar from previous cesarean delivery (principal); Z3A.39 39 weeks gestation of pregnancy; Z37.0 Single live birth
CPT/HCPCS: 36415; 80053; 85025; 85610; 86593; 86850; 86900; 86901; 88307-TC

== ENCOUNTER 2021-09-04 22:43 | Emergency (ER) | payer OTHER ==
[2021-09-04 23:04] VITALS: BMI 26.4
[2021-09-05] MEDS ORDERED: ACETAMINOPHEN 1000 MG/100 ML VIAL IVPB ONE (00:01)
[2021-09-05] MEDS ORDERED: ACETAMINOPHEN INJECTION 100 ML IVPB ONE (00:38)
[2021-09-05 00:43] LABS: BASO % 0.3 % (0-2.0); EOS % 0.3 % (0-4.5); HEMATOCRIT 42.7 % (32.4-45.2); HEMOGLOBIN 14.3 GM/dL (10.7-15.3); LYMPH % 3.7 % (8-40); MCH 29.2 pg (25.7-33.7); MCHC 33.5 g/dl (32.0-36.0); MEAN CELL VOLUME 87.2 fl (80-96); MONO % 6.3 % (3.8-10.2); NEUT % 89.4 % (42.8-82.8); PLATELET COUNT 322 10^3/uL (134-434); RBC 4.89 M/mm3 (3.60-5.2); RDW 13.7 % (11.6-15.6); WHITE BLOOD COUNT 15.8 K/mm3 (4.0-10.0)
[2021-09-05 00:48] LABS: HCG,QUALITATIVE URINE Negative
[2021-09-05 00:49] LABS: EPI CELLS 33 /uL (0-25.1); HYALINE CASTS 1 /uL (0-3.1); PH,URINE 8.5 (5.0-8.0); URINE APPEARANCE TURBID; URINE BACTERIA 1259 /uL (0-1359); URINE BILIRUBIN NEGATIVE (NEGATIVE); URINE COLOR YELLOW; URINE GLUCOSE (UA) NEGATIVE (NEGATIVE); URINE KETONE NEGATIVE (NEGATIVE); URINE LEUK ESTERASE 1+ (NEGATIVE); URINE NITRITE NEGATIVE (NEGATIVE); URINE PROTEIN NEGATIVE (NEGATIVE); URINE WBC 58 /uL (0-25.8)
[2021-09-05 01:02] LABS: CHLORIDE 105 mmol/L (98-107); SODIUM 139 mmol/L (136-145)
[2021-09-05 01:04] LABS: BLOOD UREA NITROGEN 9.6 mg/dL (7-18); CALCIUM 9.5 mg/dL (8.5-10.1)
[2021-09-05 01:05] LABS: ALBUMIN 4.8 g/dl (3.4-5.0); ANION GAP 8 MMOL/L (8-16); CO2 26 mmol/L (21-32); GLUCOSE,RANDOM 99 mg/dL (74-106)
[2021-09-05 01:07] LABS: CREATININE 0.8 mg/dL (0.55-1.3); SGOT/AST 19 U/L (15-37); SGPT/ALT 35 U/L (13-61)
[2021-09-05 01:09] LABS: BILIRUBIN,TOTAL 0.4 mg/dL (0.2-1); TOT PROT 8.5 g/dl (6.4-8.2)
[2021-09-05 01:11] LABS: ALK PHOS 62 U/L (45-117)
[2021-09-05 01:17] LABS: VENOUS BASE EXCESS -3.4 mmol/L (-2-2); VENOUS O2 SATURATION 90.9 % (70-80); VENOUS PCO2 35.4 mmHg (38-52); VENOUS PH 7.387 (7.310-7.410)
[2021-09-05 02:51] VITALS: BP 104/59; PULSE 85; TEMP 98.3
== END 2021-09-05 04:15 | disposition home or self-care (01) ==
LOC: JER 22:43
DX: N39.0 Urinary tract infection, site not specified (principal); U07.1 COVID-19
CPT/HCPCS: 36415; 71045-TC-FY; 74177-TC; 80053; 81003; 82550; 82803; 83605; 84484; 84703; 85025; 87040; 87086; 87804; 93005; 93010; 99285-25; C9803; J0131; U0003; U0005

== ENCOUNTER 2023-03-29 20:55 | Emergency (ER) | payer OTHER ==
[2023-03-29 21:13] VITALS: BMI 26.0
[2023-03-29] MEDS ORDERED: ONDANSETRON 4 MG/2 ML VIAL IVPUSH ONE (23:08)
[2023-03-29] MEDS ORDERED: FAMOTIDINE 20 MG/50 ML IVPB 20 MG/50 ML MG IVPB ONE (23:08)
[2023-03-29] MEDS ORDERED: ACETAMINOPHEN 1000 MG/100 ML BAG IVPB ONE (23:08)
[2023-03-29 23:26] LABS: BASO % 0.5 % (0-2.0); EOS % 2.4 % (0-4.5); HEMOGLOBIN 13.7 GM/dL (10.7-15.3); LYMPH % 29.3 % (8-40); MCH 29.1 pg (25.7-33.7); MCHC 33.5 g/dl (32.0-36.0); MEAN CELL VOLUME 86.8 fl (80-96); MEAN PLT VOLUME 7.8 fl (7.5-11.1); MONO % 7.1 % (3.8-10.2); NEUT % 60.7 % (42.8-82.8); PLATELET COUNT 371 10^3/uL (134-434); RBC 4.73 M/mm3 (3.60-5.2); RDW 13.6 % (11.6-15.6); WHITE BLOOD COUNT 12.9 K/mm3 (4.0-10.0)
[2023-03-29 23:43] LABS: EPI CELLS >36 /uL (0-25.1); HYALINE CASTS 0 /uL (0-3.1); PH,URINE 6.5 (5.0-8.0); URINE APPEARANCE CLEAR; URINE BACTERIA 322 /uL (0-1359); URINE BILIRUBIN NEGATIVE (NEGATIVE); URINE COLOR YELLOW; URINE GLUCOSE (UA) NEGATIVE (NEGATIVE); URINE KETONE NEGATIVE (NEGATIVE); URINE LEUK ESTERASE TRACE (NEGATIVE); URINE NITRITE NEGATIVE (NEGATIVE); URINE PROTEIN NEGATIVE (NEGATIVE); URINE RBC 5 /uL (0-23.9); URINE UROBILINOGEN 0.2 mg/dL (0.2-1.0); URINE WBC 31 /uL (0-25.8)
[2023-03-29 23:44] LABS: CHLORIDE 109 mmol/L (98-107); SODIUM 135 mmol/L (136-145)
[2023-03-29 23:46] LABS: CALCIUM 8.9 mg/dL (8.5-10.1)
[2023-03-29 23:47] LABS: ALBUMIN 3.8 g/dl (3.4-5.0); BLOOD UREA NITROGEN 8.8 mg/dL (7-18); CO2 25 mmol/L (21-32); GLUCOSE,RANDOM 92 mg/dL (74-106); LIPASE 174 U/L (73-393); MAGNESIUM 2.5 mg/dL (1.8-2.4)
[2023-03-29 23:50] LABS: ANISOCYTOSIS 1+; CREATININE 0.7 mg/dL (0.55-1.3); MACROCYTOSIS 0; TEAR DROP CELLS 1+
[2023-03-29 23:51] LABS: BILIRUBIN,TOTAL 0.3 mg/dL (0.2-1); TOT PROT 8.3 g/dl (6.4-8.2)
[2023-03-29 23:52] LABS: ALK PHOS 58 U/L (45-117)
[2023-03-30 00:07] LABS: ANION GAP 1 MMOL/L (8-16); POTASSIUM > 10.0 mmol/L (3.5-5.1); SGOT/AST 129 U/L (15-37); SGPT/ALT 55 U/L (13-61)
[2023-03-30 01:30] VITALS: BP 115/64; PULSE 66; RESP 16; TEMP 99.2
== END 2023-03-30 02:17 | disposition home or self-care (01) ==
LOC: JER 20:55
PROC: 3E033GC Introduction of Other Therapeutic Substance into Peripheral Vein, Percutaneous Approach (ICD-10-PCS; principal; 2023-03-29)
PROC: 3E033NZ Introduction of Analgesics, Hypnotics, Sedatives into Peripheral Vein, Percutaneous Approach (ICD-10-PCS; 2023-03-29)
PROC: 3E033GC Introduction of Other Therapeutic Substance into Peripheral Vein, Percutaneous Approach (ICD-10-PCS; 2023-03-29)
DX: R10.31 Right lower quadrant pain (principal); R19.7 Diarrhea, unspecified; R11.0 Nausea
CPT/HCPCS: 36415; 74177-TC; 80053; 81003; 83690; 83735; 84132; 84703; 85025; 87086; 99285-25; Q9967

== ENCOUNTER 2024-05-13 13:59 | Emergency (ER) | payer SELFPAY ==
[2024-05-13 14:10] VITALS: BP 112/74; PULSE 70; RESP 20; TEMP 98.4; BMI 26.4
[2024-05-13 15:34] LABS: BASO % 0.5 % (0-2.0); EOS % 1.1 % (0-4.5); HEMATOCRIT 40.4 % (32.4-45.2); HEMOGLOBIN 13.4 GM/dL (10.7-15.3); LYMPH % 23.2 % (8-40); MCH 29.3 pg (25.7-33.7); MCHC 33.2 g/dl (32.0-36.0); MEAN CELL VOLUME 88.3 fl (80-96); MEAN PLT VOLUME 7.6 fl (7.5-11.1); MONO % 6.4 % (3.8-10.2); NEUT % 68.8 % (42.8-82.8); PLATELET COUNT 406 10^3/uL (134-434); RBC 4.57 M/mm3 (3.60-5.2); RDW 13.3 % (11.6-15.6); WHITE BLOOD COUNT 12.7 K/mm3 (4.0-10.0)
[2024-05-13 15:38] LABS: EPI CELLS 25 /uL (0-25.1); HYALINE CASTS 4 /uL (0-3.1); URINE APPEARANCE CLEAR; URINE BACTERIA 4613 /uL (0-1359); URINE BILIRUBIN NEGATIVE (NEGATIVE); URINE COLOR YELLOW; URINE GLUCOSE (UA) NEGATIVE (NEGATIVE); URINE KETONE TRACE (NEGATIVE); URINE LEUK ESTERASE 2+ (NEGATIVE); URINE NITRITE NEGATIVE (NEGATIVE); URINE PROTEIN NEGATIVE (NEGATIVE); URINE RBC 6 /uL (0-23.9); URINE WBC 180 /uL (0-25.8)
[2024-05-13 15:54] LABS: POTASSIUM 4.1 mmol/L (3.5-5.1)
[2024-05-13 15:55] LABS: CALCIUM 8.9 mg/dL (8.5-10.1)
[2024-05-13 15:56] LABS: ALBUMIN 3.9 g/dl (3.4-5.0); BLOOD UREA NITROGEN 6.9 mg/dL (7-18)
[2024-05-13 15:59] LABS: CREATININE 0.5 mg/dL (0.55-1.3)
[2024-05-13 16:01] LABS: BILIRUBIN,TOTAL 0.6 mg/dL (0.2-1); TOT PROT 7.1 g/dl (6.4-8.2)
[2024-05-13 16:53] LABS: HIV INTERPRETATION NEGATIVE (NEGATIVE)
== END 2024-05-13 19:13 | disposition home or self-care (01) ==
LOC: JER 13:59
DX: O26.891 Other specified pregnancy related conditions, first trimester (principal); R10.30 Lower abdominal pain, unspecified; Z3A.00 Weeks of gestation of pregnancy not specified
CPT/HCPCS: 36415; 76817-TC; 80053; 81003; 84702; 84703; 85025; 86803; 87086; 87186; 87389; 99284-25

== ENCOUNTER 2024-12-27 11:09 | Emergency (ER) | payer OTHER ==
[2024-12-27 11:15] VITALS: BP 108/62; PULSE 70; RESP 18; TEMP 97.5; BMI 24.1
[2024-12-27 12:01] LABS: BASOPHILS # 0.05 x10^3/uL (0.01-0.08); EOSINOPHIL % 0.7 % (0.7-5.8); EOSINOPHILS # 0.08 x10^3/uL (0.04-0.36); HEMATOCRIT 39.2 % (34.1-44.9); MCHC 33.2 g/dl (32.2-35.5); MEAN CELL VOLUME 89.3 fl (79.4-94.8); MEAN PLT VOLUME 9.4 fl (9.4-12.3); MONOCYTE # 0.62 x10^3/uL (0.24-0.86); MONOCYTE % 5.2 % (4.7-12.5); PLATELET COUNT 351 x10^3/uL (182-369); RDW 13.2 % (12.1-16.8)
[2024-12-27 12:01] LABS: HCG,QUALITATIVE URINE Positive
[2024-12-27 12:02] LABS: PH,URINE 5.5 (5.0-8.0); URINE APPEARANCE CLEAR; URINE BILIRUBIN NEGATIVE (NEGATIVE); URINE COLOR YELLOW; URINE GLUCOSE (UA) NEGATIVE (NEGATIVE); URINE KETONE NEGATIVE (NEGATIVE); URINE LEUK ESTERASE NEGATIVE (NEGATIVE); URINE NITRITE NEGATIVE (NEGATIVE); URINE PROTEIN NEGATIVE (NEGATIVE)
[2024-12-27 12:10] LABS: INR 1.08 (0.83-1.09); PROTHROMBIN TIME (PATIENT) 11.8 SEC (9.7-13.0)
[2024-12-27 12:13] LABS: ACTIVATED PTT 31.1 SECONDS (25.2-36.5)
[2024-12-27 13:15] LABS: HCV DIAGNOSTIC IN-HOUSE W/RFLX NON-REACTIVE (NONREACTIVE); HIV INTERPRETATION NEGATIVE (NEGATIVE)
== END 2024-12-27 15:53 | disposition home or self-care (01) ==
LOC: JER 11:09
DX: O20.9 Hemorrhage in early pregnancy, unspecified (principal); Z3A.01 Less than 8 weeks gestation of pregnancy
CPT/HCPCS: 36415; 76817-TC; 81003; 84702; 84703; 85025; 85610; 85730; 86803; 86850; 86900; 86901; 87389; 99284-25

== ENCOUNTER 2024-12-29 10:55 | Emergency (ER) | payer OTHER ==
[2024-12-29 11:28] VITALS: RESP 18; TEMP 98.9; BMI 24.1
[2024-12-29 12:16] LABS: PH,URINE 6.5 (5.0-8.0); URINE APPEARANCE CLEAR; URINE BILIRUBIN NEGATIVE (NEGATIVE); URINE COLOR YELLOW; URINE GLUCOSE (UA) NEGATIVE (NEGATIVE); URINE KETONE NEGATIVE (NEGATIVE); URINE LEUK ESTERASE NEGATIVE (NEGATIVE); URINE NITRITE NEGATIVE (NEGATIVE); URINE PROTEIN NEGATIVE (NEGATIVE); URINE UROBILINOGEN 0.2 mg/dL (0.2-1.0)
[2024-12-29 14:55] VITALS: BP 101/58; PULSE 70
== END 2024-12-29 15:44 | disposition home or self-care (01) ==
LOC: JERFT 10:55
DX: O20.9 Hemorrhage in early pregnancy, unspecified (principal); O26.891 Other specified pregnancy related conditions, first trimester; R10.9 Unspecified abdominal pain; Z3A.01 Less than 8 weeks gestation of pregnancy
CPT/HCPCS: 36415; 76817-TC; 81003; 84702; 99284-25